=== PATIENT | male | born 1950 | race Two or more races ===

== ENCOUNTER 2020-06-26 13:36 | Outpatient (CLI) | payer OTHER ==
[~2020-06-26] VITALS: Ht 182.9 cm; Wt 106.6 kg
[2020-06-26] MEDS ORDERED: JANUVIA100 MG (13:46)
[2020-06-26] MEDS ORDERED: SYNTHROID50 MCG (13:47)
[2020-06-26] MEDS ORDERED: ATACAND32 MG (13:47)
[2020-06-26] MEDS ORDERED: CRESTOR5 MG (13:47)
== END 2020-06-26 18:25 | disposition home or self-care (01) ==
LOC: OFIC 805 13:36
PROVIDERS: ATTEND Otolaryngology
DX: R13.19 Other dysphagia (principal); K21.0 Gastro-esophageal reflux disease with esophagitis; T78.1XXA Other adverse food reactions, not elsewhere classified, initial encounter

== ENCOUNTER → 2020-06-29 | Outpatient (CLI) | payer OTHER ==
[~2020-06-29] MED LIST: ATACAND32 MG; CRESTOR5 MG; JANUVIA100 MG; SYNTHROID50 MCG
== END | disposition home or self-care (01) ==
LOC: RX STUDY 10:00
PROVIDERS: ATTEND Otolaryngology
DX: R13.19 Other dysphagia (principal)

== ENCOUNTER 2020-08-14 12:03 | Outpatient (CLI) | payer OTHER | END 2020-08-14 16:59 | disposition home or self-care (01) | LOC: OFIC 805 12:03 | PROVIDERS: ATTEND Otolaryngology | DX: K21.0 Gastro-esophageal reflux disease with esophagitis (principal); R13.19 Other dysphagia; T78.1XXA Other adverse food reactions, not elsewhere classified, initial encounter ==

== ENCOUNTER → 2020-11-08 | Outpatient (CLI) | payer OTHER | END | disposition home or self-care (01) | LOC: OFIC 805 10:00 | PROVIDERS: ATTEND Otolaryngology | DX: R13.19 Other dysphagia (principal); K29.60 Other gastritis without bleeding ==

== ENCOUNTER 2021-01-28 09:44 | Outpatient (CLI) | payer OTHER | END 2021-01-28 16:35 | disposition home or self-care (01) | LOC: OFIC 805 09:44 | PROVIDERS: ATTEND Otolaryngology | DX: K21.00 Gastro-esophageal reflux disease with esophagitis, without bleeding (principal); K29.60 Other gastritis without bleeding; R47.02 Dysphasia ==